=== PATIENT | male | born 1955 | race Caucasian/White ===

== ENCOUNTER → 2020-09-23 | Outpatient (CLI) | payer MEDICARE, MEDICAID ==
[~2020-09-23] MED LIST: ISOVUE-370 76% 100ML VIAL As Ordered ONE
--- NOTE | 2020-09-25 12:00 | REP ---
INDICATION: ABNORMAL WEIGHT LOSS. COMPARISON: Comparison chest CT study is retrieved from [facility] dated March 28, 2018.. TECHNIQUE: Helical scanning is acquired and 3 mm axial images are generated. Coronal and sagittal MPR and coronal MIP images are generated. FINDINGS: There are advanced emphysematous changes throughout the upper lobes bilaterally as seen previously. Some emphysematous changes are seen in the lower lobes as well. There are numerous scattered tiny granulomatous calcified nodules bilaterally unchanged. There are granulomatous calcifications scattered in the spleen unchanged. There is a 6 mm stable peribronchovascular nodule in the left upper lobe along the posterior wall of a segmental bronchus. This is best seen on sagittal multiplanar reformations image number 83 of 125 and series 205. This is visible in retrospect on 2018 prior study and is unchanged. There is a ill-defined noncalcified 4 mm nodule in the right middle lobe on axial page number 72 of 122 in series 201 of today's study. This is also unchanged. No new pulmonary nodules appreciated. There are bilateral hilar and a few mediastinal lymph nodes seen. These are all unchanged from the 2018 prior study. A right pretracheal lymph node has a short axis dimension of 1.1 cm. Subcarinal lymph node has a short axis dimension of 1.5 cm. The other lymph nodes are smaller and as stated, are unchanged. There is focal calcification in the left coronary artery distribution. Normal adrenal glands. Post cholecystectomy clips are noted. IMPRESSION: Evidence of COPD with extensive emphysematous changes throughout the upper lung zones. Old granulomatous disease with multiple calcified granulomas unchanged. Stable noncalcified nodules. Stable mediastinal and bilateral hilar lymph nodes. No active disease. <Electronically signed by Wally Johnson > 09/25/20 [id number]
== END ==
LOC: M RAD 10:34
PROVIDERS: ATTEND Family Medicine
DX: C83.30 Diffuse large B-cell lymphoma, unspecified site (principal); R59.0 Localized enlarged lymph nodes; R63.4 Abnormal weight loss
CPT/HCPCS: 71260; Q9967